=== PATIENT | male | born 1990 | race American Indian/Alaskan Native ===

== ENCOUNTER 2018-11-08 06:46 | Emergency (ER) | payer SELFPAY ==
[2018-11-08] MEDS ORDERED: XYLOCAINE 1% 20 mL INFILTRATI ONE (08:37)
[2018-11-08] MEDS ORDERED: BOOSTRIX IM ONE (08:47)
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
[2018-11-08] MEDS ORDERED: NACL 0.9% IR ONE (08:56)
[2018-11-08] MEDS ORDERED: NACL 0.9% 500 ML IR ONE (08:57)
--- NOTE | 2018-11-08 09:30 | XRay Report ---
LEFT FINGERS, 3 VIEWS History: Fifth finger injury, pain. Findings: Soft tissue defect or laceration involving the fifth digit is noted. No osseous abnormality, joint pathology or soft tissue foreign body is identified. Impression: Soft tissue injury to the fifth digit.
[2018-11-08 10:26] VITALS: BP 132/62
== END 2018-11-08 10:41 | disposition home or self-care (01) ==
LOC: ED 06:46
DX: S61.216A Laceration without foreign body of right little finger without damage to nail, initial encounter (principal); F17.200 Nicotine dependence, unspecified, uncomplicated; W45.8XXA Other foreign body or object entering through skin, initial encounter; Y93.89 Activity, other specified; Y92.89 Other specified places as the place of occurrence of the external cause; Y99.8 Other external cause status
CPT/HCPCS: 90471; 90715